=== PATIENT | female | born 1960 | race Two or more races ===

== ENCOUNTER → 2018-01-08 | Outpatient (CLI) | payer OTHER ==
[~2018-01-08] MED LIST: BACLOFEN20 MG PO; DICLOFENAC SODI50 MG PO
== END | disposition home or self-care (01) ==
LOC: MRI 13:39
DX: G30.1 Alzheimer's disease with late onset (principal); I63.131 Cerebral infarction due to embolism of right carotid artery
CPT/HCPCS: 70551

== ENCOUNTER 2018-03-29 07:39 | Outpatient (CLI) | payer OTHER | END 2018-03-29 07:52 | disposition home or self-care (01) | LOC: LAB 07:39 | DX: R22.1 Localized swelling, mass and lump, neck (principal); Z51.81 Encounter for therapeutic drug level monitoring ==

== ENCOUNTER 2018-03-29 09:21 | Outpatient (CLI) | payer OTHER | END 2018-03-29 09:33 | disposition home or self-care (01) | LOC: TOM 09:21 | DX: R22.1 Localized swelling, mass and lump, neck (principal); S19.9XXA Unspecified injury of neck, initial encounter | CPT/HCPCS: 70492; Q9965 ==

== ENCOUNTER 2018-08-04 11:56 | Outpatient (CLI) | payer OTHER | END 2018-08-04 11:58 | disposition home or self-care (01) | LOC: MAMO-SONO 11:56 | DX: Z12.31 Encounter for screening mammogram for malignant neoplasm of breast (principal); Z87.898 Personal history of other specified conditions; N60.11 Diffuse cystic mastopathy of right breast; N60.12 Diffuse cystic mastopathy of left breast; D49.3 Neoplasm of unspecified behavior of breast ==

== ENCOUNTER → 2018-08-04 | Outpatient (CLI) | payer OTHER | END | disposition home or self-care (01) | LOC: NUCLEAR 07-22 13:00 | DX: M81.0 Age-related osteoporosis without current pathological fracture (principal); M85.80 Other specified disorders of bone density and structure, unspecified site ==

== ENCOUNTER 2018-08-20 12:05 | Outpatient (CLI) | payer OTHER | END 2018-08-20 12:08 | disposition home or self-care (01) | LOC: SONOGRAMA 12:05 | DX: N60.11 Diffuse cystic mastopathy of right breast (principal); N60.12 Diffuse cystic mastopathy of left breast ==

== ENCOUNTER 2018-09-01 12:31 | Outpatient (CLI) | payer OTHER | END 2018-09-01 12:33 | disposition home or self-care (01) | LOC: RAD 12:31 | DX: J98.01 Acute bronchospasm (principal); R05 Cough; I35.0 Nonrheumatic aortic (valve) stenosis ==

== ENCOUNTER 2019-01-03 08:50 | Outpatient (CLI) | payer OTHER | END 2019-01-03 08:52 | disposition home or self-care (01) | LOC: SONOGRAMA 08:50 → MAMO-SONO 01-04 10:15 | DX: N60.11 Diffuse cystic mastopathy of right breast (principal); N60.12 Diffuse cystic mastopathy of left breast ==

== ENCOUNTER 2019-03-21 07:57 | Outpatient (CLI) | payer OTHER | END 2019-03-21 07:59 | disposition home or self-care (01) | LOC: SONOGRAMA 07:57 → MAMO-SONO 09:15 | DX: E04.2 Nontoxic multinodular goiter (principal) ==

== ENCOUNTER 2019-08-23 08:08 | Outpatient (CLI) | payer OTHER | END 2019-08-23 08:20 | disposition home or self-care (01) | LOC: RAD 08:08 → MAMO-SONO 09:15 | DX: N60.11 Diffuse cystic mastopathy of right breast (principal); N60.12 Diffuse cystic mastopathy of left breast; D16.21 Benign neoplasm of long bones of right lower limb; R07.89 Other chest pain ==